=== PATIENT | male | born 1985 | race Caucasian/White ===

== ENCOUNTER 2017-11-12 17:13 | Emergency (ER) | payer BC ==
[2017-11-12 17:22] VITALS: BP 119/75
[2017-11-12] MEDS ORDERED: BUFFERED LIDOCAINE 10 ML SYRINGE SUBQ STA (17:31)
--- NOTE | 2017-11-12 17:44 | ED Physician Documentation ---
PD HPI UPPER EXT INJURY - Stated complaint Stated Complaint: FINGER LAC - Chief complaint Chief Complaint: Ext Problem - History obtained from History obtained from: Patient - History of Present Illness Location: Other (Left-handed gentleman who is up-to-date on tetanus was working at home with a Rom[employer] today and injured the dorsal surface of the distal Second right finger.) Review of Systems Constitutional: denies: Fever, Chills Skin: reports: Reviewed and negative Musculoskeletal: reports: Reviewed and negative PD PAST MEDICAL HISTORY - Past Medical History Past Medical History: Yes Other Past Medical History: Head aches - Past Surgical History Past Surgical History: Yes - Present Medications Home Medications: Ambulatory Orders Medication Instructions Recorded Confirmed HYDROcod/ACETAM 5/325 [Hurst 5/325] 1 - 2 ea PO Q6H PRN #15 tablet 11/12/17 - Allergies Allergies/Adverse Reactions: Allergies Allergy/AdvReac Type Severity Reaction Status Date / Time No Known Drug Allergies Allergy Verified 11/12/17 17:22 - Social History Does the pt smoke?: Yes Smoking Status: Former smoker Does the pt drink ETOH?: Yes Does the pt have substance abuse?: No - Immunizations Immunizations are current?: Yes PD ED PE NORMAL - Vitals Vital signs reviewed: Yes - General General: Alert and oriented X 3, No acute distress - Extremities Extremities: Other (There is tissue loss extending from the DIP on the dorsal surface of the right second finger distally, much of the central part of the nail is gone and the nailbed is abraded.) - Neuro Neuro: Alert and oriented X 3, Normal speech Results - Vitals Vitals: Vital Signs - 24 hr 11/12/17 17:21 Temperature 36.7 C Heart Rate 63 Respiratory 16 Rate Blood Pressure 119/75 O2 Saturation 98 Oxygen O2 Source Room air Procedures - General procedure General procedure: After a digital block with buffered lidocaine the remaining nail was sharply debrided and removed, there were some very small arterial bleeders which were cauterized and then it was dressed. Departure - Departure Disposition: 01 Home, Self Care Clinical Impression: Fingernail avulsion Qualifiers: Encounter type: initial encounter Qualified Code(s): S61.309A - Unspecified open wound of unspecified finger with damage to nail, initial encounter Condition: Good Record reviewed to determine appropriate education?: Yes Instructions: ED Wound Care Prescriptions: HYDROcod/ACETAM 5/325 [Hurst 5/325] 1 - 2 ea PO Q6H PRN #15 tablet PRN Reason: Pain Comments: Soap and water and bulky dressing as discussed. Return for signs of infection including redness, swelling, drainage, fever. Follow-up with your doctor early next week for a wound check. Forms: Activity restrictions
[2017-11-12] MEDS ORDERED: HYDROcod/ACETAM 5/325 MG TABLET PO STA (18:29)
== END 2017-11-12 18:51 | disposition home or self-care (01) ==
LOC: ED 17:13
DX: S61.310A Laceration without foreign body of right index finger with damage to nail, initial encounter (principal); W31.2XXA Contact with powered woodworking and forming machines, initial encounter; Y92.009 Unspecified place in unspecified non-institutional (private) residence as the place of occurrence of the external cause; Z87.891 Personal history of nicotine dependence
CPT/HCPCS: 11730; 99283; A9270

== ENCOUNTER 2018-01-24 13:31 | Outpatient (CLI) | payer BC ==
[~2018-01-24 13:31] MED LIST: GADOBUTROL 10 MMOL/10 ML SYRINGE ONE
[2018-01-24] MEDS ORDERED: GADOBUTROL 10 MMOL/10 ML SYRINGE IVP ONE (15:19)
--- NOTE | 2018-01-25 20:16 | MRI Report ---
EXAM: MRI BRAIN WITHOUT AND WITH CONTRAST EXAM DATE: 01/24/2018 02:00 PM. CLINICAL HISTORY: 32-year-old with history of severe migraines COMPARISON: None. TECHNIQUE: Multiplanar, multisequence T1-weighted and fluid-sensitive MR sequences of the brain were performed. Sequences optimized for routine evaluation. Other: None. IV Contrast: 9 cc GADAVIST. FINDINGS: Brain Volume: Normal for age. Parenchyma: No acute hemorrhage, mass, or infarct. No white matter lesions identified. No abnormal en hancement. Incidentally seen is a small left frontal developmental venous anomaly. Incidentally seen is a small right frontal developmental venous anomaly. Ventricles/Cisterns: No hydrocephalus. No abnormal extra-axial fluid collection or hemorrhage. Orbits: Symmetric and unremarkable. Sella Turcica: The pituitary gland, cavernous sinuses, suprasellar cistern and optic chiasm are unrem arkable. IAC: Symmetric and unremarkable. Vasculature: Normal signal flow void is seen in the major arterial structures at the skull base. The dural sinuses are patent and enhance normally. Sinuses: Mild mucosal thickening in the ethmoid air cells. Mastoid air cells and middle ear cavities are clear. Bones: No focal pathologic appearing marrow signal changes. Other: None. IMPRESSION: 1. No acute infarct, intracranial hemorrhage, mass, hydrocephalus, midline shift, or abnormal postcon trast enhancement. 2. No definite white matter of lesions seen. [facility] Referring Provider Line: [phone] SITE ID: [id number]
== END 2018-01-24 13:32 | disposition home or self-care (01) ==
LOC: DI 13:31
PROVIDERS: ATTEND Physician Assistant Medical
DX: G43.909 Migraine, unspecified, not intractable, without status migrainosus (principal)
CPT/HCPCS: 70553; A9585

== ENCOUNTER 2018-03-03 16:02 | Outpatient (CLI) | END 2018-03-03 16:03 | disposition home or self-care (01) ==

== ENCOUNTER 2019-12-06 16:20 | Outpatient (CLI) | payer BC ==
[2019-12-06] MEDS ORDERED: IOVERSOL 320 100 ML VIAL IVP ONE ×2 (16:24→17:06)
--- NOTE | 2019-12-07 03:24 | CT Report ---
Reason: RT FLANK PAIN Procedure Date: 12/06/2019 Accession Number: [id number] / [id number] Procedure: CT - IVP CPT Code: Final Report FULL RESULT: EXAM: CT ABDOMEN AND PELVIS WITHOUT AND WITH CONTRAST (CT IVP) EXAM DATE: 12/06/2019 05:13 PM. CLINICAL HISTORY: Right flank pain COMPARISONS: None. TECHNIQUE: Routine helical imaging was performed through the kidneys, ureters and bladder in the precontrast, postcontrast and delayed phase. IV Contrast: OPTIRAY 320. Reconstructions: Coronal and sagittal. In accordance with CT protocol optimization, one or more of the following dose reduction techniques were utilized for this exam: automated exposure control, adjustment of mA and/or KV based on patient size, or use of iterative reconstructive technique. FINDINGS: Minimal dependent atelectasis is seen in the lung bases. The visible heart is normal in size. No pericardial effusion. Calcifications are seen in the liver and spleen, likely representing calcified granulomas. No intrahepatic mass is seen. The gallbladder is normal. There is no biliary dilatation. The pancreas and adrenal glands are within normal limits. The kidneys enhance symmetrically. There is no evidence of renal mass or calculus. No ureteral calculus is seen. There is no hydronephrosis. Contrast is excreted into the renal collecting systems without evidence of filling defect. The bladder is normal and without evidence of bladder calculus or bladder wall thickening. Diverticula are seen in the colon without evidence of diverticulitis. The appendix is normal. The intestines are normal in caliber and position. There is no evidence of bowel obstruction or ascites. No free intraperitoneal air is seen. There is no lymphadenopathy. The abdominal aorta is normal in course and caliber. The prostate gland is normal in size with a single punctate internal calcification. The osseous structures are intact and well aligned. No suspicious lytic or blastic lesions are seen. IMPRESSION: 1. No urinary tract masses, stones or obstruction. 2. Diverticulosis. [facility]
== END 2019-12-06 16:21 | disposition home or self-care (01) ==
LOC: DI 16:20
PROVIDERS: ATTEND Family Medicine
DX: K57.30 Diverticulosis of large intestine without perforation or abscess without bleeding (principal); R10.9 Unspecified abdominal pain
CPT/HCPCS: 74178; Q9967

== ENCOUNTER 2023-02-26 10:24 | Outpatient (CLI) | payer BC ==
[2023-02-26 18:41] LABS: BASOPHILS % (AUTO) 0.5 %; EOSINOPHILS # (AUTO) 0.1 10^3/uL (0.0-0.7); EOSINOPHILS % (AUTO) 1.5 %; HCT - HEMATOCRIT 44.3 % (42.0-52.0); HGB - HEMOGLOBIN 14.6 g/dL (14.0-18.0); LYMPHOCYTES # (AUTO) 2.6 10^3/uL (1.5-3.5); LYMPHOCYTES % (AUTO) 28.9 %; MEAN CORPUSCULAR HEMOGLOBIN 31.3 pg (27.0-31.0); MEAN CORPUSCULAR VOLUME 95.1 fL (80.0-94.0); MEAN PLATELET VOLUME 10.1 fL (7.4-11.4); MONOCYTES # (AUTO) 0.7 10^3/uL (0.0-1.0); MONOCYTES % (AUTO) 8.4 %; NEUTROPHILS # (AUTO) 5.4 10^3/uL (1.5-6.6); NEUTROPHILS % (AUTO) 60.4 %; PLT - PLATELET COUNT 224 10^3/uL (130-450); RED BLOOD COUNT 4.66 10^6/uL (4.70-6.10); RED CELL DISTRIBUTION WIDTH 13.6 % (12.0-15.0); WHITE BLOOD COUNT 8.9 x10^3/uL (4.8-10.8)
[2023-02-26 19:22] LABS: ALBUMIN 4.5 g/dL (3.2-5.5); ALBUMIN/GLOBULIN RATIO 1.5 (1.0-2.2); ALKALINE PHOSPHATASE 37 IU/L (42-121); ALT ALANINE AMINOTRANSFERASE 36 IU/L (10-60); AST ASPARTATE AMINOTRANSFERASE 26 IU/L (10-42); BILIRUBIN,TOTAL 0.8 mg/dL (0.2-1.0); BUN - BLOOD UREA NITROGEN 23 mg/dL (6-20); CALCIUM 9.4 mg/dL (8.5-10.3); CARBON DIOXIDE - CO2 28 mmol/L (21-32); CHLORIDE 104 mmol/L (101-111); CHOL/HDL RATIO 3.7 (<5.0); CHOLESTEROL 268 mg/dL; GFR - MDRD 83 (>89); GLUCOSE 103 mg/dL (70-100); HDL CHOLESTEROL 73 mg/dL; LDL CHOLESTEROL,CALCULATED 184 mg/dL; LDL/HDL RATIO 2.5 (<3.6); POTASSIUM 4.4 mmol/L (3.5-5.0); SODIUM 138 mmol/L (135-145); TOTAL PROTEIN 7.5 g/dL (6.7-8.2); TRIGLYCERIDES 54 mg/dL; VLDL CHOLESTEROL 11 mg/dL
[2023-02-26 19:33] LABS: THYROID STIMULATING HORMONE 0.92 uIU/mL (0.34-5.60)
== END 2023-02-26 10:25 | disposition home or self-care (01) ==
LOC: LAB.N 10:24
PROVIDERS: ATTEND Physician Assistant Medical
DX: Z00.00 Encounter for general adult medical examination without abnormal findings (principal); F41.9 Anxiety disorder, unspecified
CPT/HCPCS: 36415; 80053; 80061; 82306; 82607; 83721; 84443; 85025

== ENCOUNTER 2023-08-21 12:03 | Outpatient (CLI) | payer BC ==
--- NOTE | 2023-08-21 14:27 | XRAY Report ---
PROCEDURE: Tib/Fib RT INDICATIONS: RT LEG PAIN, RIGHT MEDIAL LEG DEFORMITY TECHNIQUE: 2 views of the tibia and fibula were acquired. COMPARISON: None. FINDINGS: Bones: No fractures or dislocations. There appears to be ossification of the soft tissue structure adjacent to the medial aspect of the tibia in the region of pain. No suspicious bony lesions. Soft tissues: No suspicious soft tissue calcifications or masses. IMPRESSION: There appears to be ossification of the soft tissues directly adjacent to the medial aspect of the ti anselmo in the region of pain. This may represent heterotopic ossification, which can be seen secondary t o prior trauma. Otherwise, no acute abnormalities are identified. Reviewed by: Julio Ontiveros MD on 08/21/2023 2:26 PM PST Approved by: Julio Ontiveros MD on 08/21/2023 2:26 PM PST Station ID: [id number]
== END 2023-08-21 12:04 | disposition home or self-care (01) ==
LOC: DI 12:03
PROVIDERS: ATTEND Physician Assistant Medical
DX: M79.604 Pain in right leg (principal)

== ENCOUNTER 2023-12-18 09:43 | Outpatient (CLI) | payer BC ==
[2023-12-18 12:19] LABS: BASOPHILS % (AUTO) 0.7 %; EOSINOPHILS # (AUTO) 0.3 10^3/uL (0.0-0.7); EOSINOPHILS % (AUTO) 4.5 %; HCT - HEMATOCRIT 46.4 % (42.0-52.0); HGB - HEMOGLOBIN 15.6 g/dL (14.0-18.0); LYMPHOCYTES % (AUTO) 33.6 %; MEAN CORPUSCULAR HEMOGLOBIN 31.9 pg (27.0-31.0); MEAN CORPUSCULAR HGB CONC 33.6 g/dL (32.0-36.0); MEAN CORPUSCULAR VOLUME 94.9 fL (80.0-94.0); MEAN PLATELET VOLUME 9.9 fL (7.4-11.4); MONOCYTES # (AUTO) 0.6 10^3/uL (0.0-1.0); NEUTROPHILS % (AUTO) 50.2 %; PLT - PLATELET COUNT 226 10^3/uL (130-450); RED BLOOD COUNT 4.89 10^6/uL (4.70-6.10); RED CELL DISTRIBUTION WIDTH 12.5 % (12.0-15.0)
[2023-12-18 12:26] LABS: ALBUMIN 4.7 g/dL (3.2-5.5); ALBUMIN/GLOBULIN RATIO 1.6 (1.0-2.2); BILIRUBIN,TOTAL 0.8 mg/dL (0.2-1.0); CALCIUM 9.7 mg/dL (8.5-10.3); POTASSIUM 4.4 mmol/L (3.5-4.5); TOTAL PROTEIN 7.7 g/dL (6.4-8.9)
[2023-12-18 12:41] LABS: THYROID STIMULATING HORMONE 1.29 uIU/mL (0.34-5.60)
[2023-12-18 12:47] LABS: FERRITIN 151.3 ng/mL (23.9-336.2)
== END 2023-12-18 09:44 | disposition home or self-care (01) ==
LOC: LAB.N 09:43
PROVIDERS: ATTEND Physician Assistant Medical
DX: R53.83 Other fatigue (principal); K21.9 Gastro-esophageal reflux disease without esophagitis
CPT/HCPCS: 36415; 80053; 82306; 82607; 82728; 82746; 84403; 84443; 85025

== ENCOUNTER 2024-01-27 15:00 | Outpatient (CLI) | payer BC ==
--- NOTE | 2024-01-27 15:49 | Sleep Patient Instructions ---
Sleep Center Visit Summary - Patient Visit Information Reason for Visit: Initial consult for evaluation of sleep disordered breathing and other sleep issues. - Patient Instructions Instructions Attached: Sleep Study, Sleep Study Home Monitor Additional Instructions: You will be completing a sleep study, either an in-lab polysomnography (PSG) or home sleep study (HST). You will follow-up in the sleep care office after the sleep study is completed to hear the results and talk about therapy, if needed. You will be called by our office staff to schedule this appointment, but you may contact us with any questions. - Clinic Information Contact: [facility] [address] [place] [id number] [email or web address] T: [phone]
--- NOTE | 2024-01-27 15:52 | SLEEP CARE CONSULTATION ---
Information from patient questionnaire entered by Gal Mejia. I have reviewed and concur with the information entered by Gal Mejia. This document represents the service I personally performed and the decisions made by me, Shira Anton ARNP. History of Present Illness Service Date and Time: 01/27/2024 1500 Reason for Visit: New patient Chief Complaint: reports: Insomnia, Unrefreshed sleep, Snoring, Excessive daytime sleepiness, Observed pauses in breathing, Fatigue, Frequent awakenings at night, Other (Headaches) Date of Onset: 20 years Usual bedtime: 10 - 10:30 PM Time it takes to fall asleep: Varies from 5 min - 2 hours Snores at night: Yes Observed to quit breathing while asleep: Yes Sleeps alone due to snoring: No Number of times waking at night: 4-5 Reasons for waking at night: reports: Snoring, Pain, Bathroom. denies: Choking, Gasping for air Toss, Turn, or Twitch while sleeping: Yes Recalls having dreams: No Usually gets out of bed at: 5:30 - 6:30 Feels refreshed in the morning: No Morning headache: Yes (every day; Usually resolves 30 - 45 min after I take meds) Sleepy or fatigued during the day: Yes Ever fallen asleep while driving: Yes (drowsy driving, no accidents) Takes day naps: Yes (3-4 naps a day) Dreams during day naps: No Prior sleep studies: No Additional HPI information: I had the pleasure of seeing ENRIQUE HERR today regarding the possibility of him having a sleep disorder. His current complaints are excessive daytime sleepiness, fatigue, frequent night awakenings, insomnia, observed pauses in breathing, snoring, unrefreshed sleep and headaches. He says that he saw an ENT because of waking up with headaches. He cannot take Excedrin and fioricet anymore because he was taking it too much. He is currently taking amitriptyline 25 mg daily which is helping him go to sleep but not necessarily take care of the headaches. He is able to go to sleep about 5-20 minutes and only wakes up 4- 5 times a night, which is an improvement, used to be double. He says he takes a nap about 4 times a day, 3 20-30 minute breaks and one 2.5-3 hours in late afternoon. He says he is tired all the time. He does not wake up feeling rested and does not remember dreaming. - Parasomnia Symptoms Ever been unable to move upon waking from sleep: Yes (not very common) Walks in sleep: No Talks in sleep: Yes Ever acted out dreams in sleep: Yes ( tells him he was moving hands in sleep) Ever felt weak in the knees when startled or emotional: Yes Bothered by creepy, crawly, restless sensations in legs: Yes (just feels like he has to move legs) Problems with memory or concentration: Yes (both) Subjective Initial Wasta Sleepiness Scale score: 18 (in 2023) Past Medical History Past Medical History: reports: Arthritis, Anxiety, Depression, GERD, Other (Migraines, plantar fasciitis) Social History 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 Patient is and lives in [place]. Have you smoked in the past 12 months: No Cigarettes per day (20/pack): 20 Years of smokin Quit date: 2009 Smoking Pack Years: 8.0 Alcohol use: Yes Alcohol amount and frequency: 3 drinks on Friday, Friday Caffeine use: Yes Caffeine amount and frequency: 1 cup each day Family History Family history of sleep disordered breathing: Yes Family Hx Sleep Apnea: Father: Snoring Allergies and Home Medications Known drug allergies: No Drug allergies reviewed: Yes Home medication list reviewed: Yes (as listed) Allergy and home medication list: Allergies No Known Drug Allergies Allergy (Verified 01/22/24 14:07) Home Medications Medication Instructions Recorded Confirmed Last Taken Type Calcium Carbonate [Tums (Calcium 1,000 mg PO DAILY 05/29/23 01/27/24 05/27/23 History Carbonate 500mg)] Fluoxetine HCl [Prozac] 60 mg PO DAILY 05/29/23 01/27/24 05/28/23 History Omeprazole 40 mg PO BID 05/29/23 01/27/24 05/28/23 History Pantoprazole [Protonix] 40 mg PO BID 14 Days #28 tablet 06/03/23 01/27/24 Unknown Rx Amitriptyline 25 mg ORAL DAILY 01/27/24 01/27/24 Unknown History Emgality Syringe See Rx Instructions .ROUTE .COMPLEX 01/27/24 01/27/24 Unknown History Famotidine 20 mg ORAL DAILY 01/27/24 01/27/24 Unknown History Fioricet 50-300-40 mg Capsule See Rx Instructions .ROUTE .COMPLEX 01/27/24 01/27/24 Unknown History Propranolol 10 mg ORAL DAILY 01/27/24 01/27/24 Unknown History Zomig 5 mg ORAL PRN PRN 01/27/24 01/27/24 Unknown History Review of Systems Weight loss over past 5 years: 20 Cardiovascular: denies: high blood pressure Respiratory: denies: shortness of breath Gastrointestinal: reports: heartburn, difficulty swallowing, nausea, vomitting, diarrhea, abdominal pain Urinary: reports: incontinence, frequency, impotence Neurological: reports: headaches, disorientation, gait or balance problems Psychiatric: reports: anxiety, depression Ear/Nose/Throat: reports: nasal congestion, sinus problems, dry mouth/throat, hoarseness. denies: tonsillectomy Endocrine: reports: sluggishness (/tired), too hot or cold, excessive thirst, increased urination Musculoskeletal: reports: joint pain (/stiffness), neck pain, back pain, joint swelling, muscle pain or cramping Immunologic: reports: sneezing (/runny nose) Physical Exam Vital signs obtained and entered by: Shira Narvaez NP Blood Pressure: 136/103 Cuff size: long (right arm) Heart Rate: 88 O2 Saturation: 98 Height: 6 ft 0.75 in Weight: 228 lb 4.8 oz Body Mass Index: 30.3 BMI Classification: Obese Neck circumference: 17 (inches) Mouth and throat: narrow oropharynx Soft palate: long Hard palate: normal Uvula: long Uvula visualization: 25% Mallampati Class III Tongue: enlarged in size with teeth iglesias on lateral edges Tonsils: small Neck: normal w/o lymphadenopathy or thyromegaly Heart: regular rate and rhythm Lungs: clear bilaterally Impression and Plan 1. Suspected Obstructive Sleep Apnea-Hypopnea Syndrome, as suggested by a history of loud and irregular snoring, observed cessation of breath while asleep, morning headache, frequent awakening during the night, unrefreshed sleep, cognitive impairment, and excessive daytime sleepiness. Narrow oropharynx and obesity are common predisposing factors for obstructive sleep apnea-hypopnea syndrome. I recommend proceeding to polysomnography to confirm the diagnosis and to assess severity. If the patient has significant sleep disordered breathing, a manual CPAP titration study will also be performed to f ind the optimal treatment pressure. I informed the patient of what the sleep studies involve and after some discussion, obtained agreement to proceed. The pathophysiology of obstructive sleep apnea-hypopnea syndrome was discussed with the patient and health risks of cardiovascular and cerebrovascular disease if not treated. Risks of drowsy driving discussed in detail and patient advised to avoid long distance driving and to gum puller at the first sign of drowsiness. Patient agreed to plan. * Schedule polysomnography * Avoid long distance driving or driving when feeling sleepy. * Avoid alcohol, sedative and muscle relaxant around bedtime. * Attempt to lose weight. * Review instructions provided by trained office staff on how to prepare for the sleep study. * Return for follow-up after sleep study completed. Counseling Topics: Weight loss health impact Plan: PSG and follow up Visit Type: In Office Time Spent with Patient (minutes): 35 Provider Statement: I spent 100% of the Face to Face Visit with the patient with greater than 50% spent counseling the patient and coordination of care.
[2024-01-27 16:02] VITALS: BP 136/103; O2SAT 98
== END 2024-01-27 15:01 | disposition home or self-care (01) ==
LOC: SC 15:00
PROVIDERS: ATTEND Nurse Practitioner Family
DX: R06.83 Snoring (principal); R06.81 Apnea, not elsewhere classified; R51.9 Headache, unspecified; G47.8 Other sleep disorders; R41.89 Other symptoms and signs involving cognitive functions and awareness; G47.10 Hypersomnia, unspecified; E66.9 Obesity, unspecified; Z68.30 Body mass index [BMI] 30.0-30.9, adult
CPT/HCPCS: 99203; 99212

== ENCOUNTER 2024-02-26 09:19 | Outpatient (CLI) | payer BC | END 2024-02-26 09:20 | disposition home or self-care (01) | LOC: SC 09:19 | PROVIDERS: ATTEND Nurse Practitioner Family | DX: G47.10 Hypersomnia, unspecified (principal); R53.83 Other fatigue; G47.8 Other sleep disorders; R51.9 Headache, unspecified; R06.83 Snoring; R06.81 Apnea, not elsewhere classified; F32.A Depression, unspecified | CPT/HCPCS: 95806 ==

== ENCOUNTER 2024-04-01 13:32 | Outpatient (CLI) | payer BC ==
--- NOTE | 2024-04-01 14:04 | Sleep Patient Instructions ---
Sleep Center Visit Summary - Patient Visit Information Reason for Visit: Sleep study follow-up - Patient Instructions Additional Instructions: Your sleep study today was negative for significant sleep disordered breathing. However, due to ongoing hypersomnia we are going to try to get another sleep study in our sleep lab. You were found to have episodes of snoring. There are different ways to control snoring including weight loss, oral devices made by a dentist or surgical options through ENT specialist. You should not use oral devices that do not fit properly because they can affect your bite. You should also check insurance coverage of oral devices for snoring because they may not be cover well. You may obtain a referral to an ENT specialist through your primary provider. Follow-up after sleep study or as needed. - Clinic Information Contact: [facility] [address] [place] [address] [email or web address] T: [phone]
[2024-04-01 14:10] VITALS: BP 119/88; O2SAT 98
--- NOTE | 2024-04-01 14:10 | SLEEP CARE CONSULTATION ---
Information from patient questionnaire entered by Kari Lira. I have reviewed and concur with the information entered by Kari Lira. This document represents the service I personally performed and the decisions made by , Shira Anton ARNP. History of Present Illness Service Date and Time: 04/01/2024 1332 Initial El[place] Sleepiness Scale score: 18 (in 2023) Current [place] Sleepiness Scale score: 22 (04/01/24) Additional HPI information: ENRIQUE HERR returns for follow up and results of the recently performed home sleep study on 02/26/2024. The patient was informed of the following findings: No significant sleep dis ordered breathing with an average AHI of 3.3 and conchis oxygen saturation of 90%. I explained the pathophysiology behind obstructive sleep apnea. Patient does not have sleep apnea and was advised how weight gain could increase the risk of developing sleep apnea in the future. I strongly encouraged the patient to lose weight. Patient has light snoring. Snoring can be reduced by weight loss. Weight loss is best achieved with diet consult. Patient instructed to contact PCP for referral. Snoring can also be treated with an oral appliance from a dentist. Advised to check insurance coverage. In addition, an ENT evaluation can be do to see if other treatment is indicated. Sleep Study - Results Type of Sleep Study: Polysomnography (COMPLETED 02/26/24) Prior sleep studies: No Polysomnography/Home Sleep Study results: Physician Impression: The quality of the study is good. The length of the study is adequate (> 240 minutes). Please also see the tabulated and graphic data. 1. No significant sleep disordered breathing, with an AHI of 3.3/hr and conchis SaO2 of 90%. During the study, the patient had 12 apneas (12 obstructive, 0 central, 0 mixed) and 13 hypopneas. The longest episode lasted 106.0 seconds. The respiratory events occurred more frequently during supine sleep (supine AHI was 3.8 and non-supine, 2.01). Allergies and Home Medications Known drug allergies: No Drug allergies reviewed: Yes Home medication list reviewed: Yes Allergy and home medication list: Allergies No Known Drug Allergies Allergy (Verified 04/01/24 13:44) Review of Systems Review of systems same as previous: Yes (NO CHANGE) Physical Exam Vital signs obtained and entered by: KARI Jeter MA Blood Pressure: 119/88 (LEFT ARM) Cuff size: regular Heart Rate: 98 O2 Saturation: 98 Height: 6 ft 0.75 in Weight: 244 lb 6.4 oz Body Mass Index: 32.4 BMI Classification: Obese Impression and Plan 1. Hypersomnia, unspecified. His Elgin score is 22/24. He is getting adequate sleep and taking naps but still is very sleepy during the day. He suffers from headaches that start about 0230 in the morning and has history of migraines. Suspected Obstructive Sleep Apnea-Hypopnea Syndrome or other sleep disordered breathing, as suggested by a history of loud and irregular snoring, observed cessation of breath while asleep, morning headache, unrefreshed sleep, cognitive impairment, and excessive daytime sleepiness. I recommend proceeding to an in-lab polysomnography to confirm the diagnosis and to assess severity. I obtained agreement to proceed. The pathophysiology of obstructive sleep apnea- hypopnea syndrome was discussed with the patient and health risks of cardiova scular and cerebrovascular disease if not treated. Risks of drowsy driving discussed in detail and patient advised to avoid long distance driving and to breast puller at the first sign of drowsiness. Patient agreed to plan. 2. Snoring but no significant sleep disordered breathing. Patient advised that often weight loss will reduce snoring as well as apnea risk. An oral appliance can also be used for snoring. This would require a dental consultation. Patient cautioned not to use other online appliances as can cause bite issues. Patient is advised to check if insurance will cover. An ENT consult can also be helpful to determine if any other treatment is an option. 3. Obesity, unspecified. Currently patients BMI is 32.4. Obesity increases the risk of apnea, CPAP pressure requirements and overall health risks especially cardiovascular and diabetes. Thus patient is advised to lose weight. * Schedule polysomnography * Avoid long distance driving or driving when feeling sleepy. * Avoid alcohol, sedative and muscle relaxant around bedtime. * Attempt to lose weight. * Review instructions provided by trained office staff on how to prepare for the sleep study. * Return for follow-up after sleep study completed. Counseling Topics: Weight loss health impact Plan: PSG in lab and follow up Visit Type: In Office Time Spent with Patient (minutes): 24 Provider Statement: I spent 100% of the Face to Face Visit with the patient with greater than 50% spent counseling the patient and coordination of care.
== END 2024-04-01 13:33 | disposition home or self-care (01) ==
LOC: SC 13:32
PROVIDERS: ATTEND Nurse Practitioner Family
DX: G47.10 Hypersomnia, unspecified (principal); R51.9 Headache, unspecified; R06.83 Snoring; E66.9 Obesity, unspecified; Z68.32 Body mass index [BMI] 32.0-32.9, adult
CPT/HCPCS: 99212; 99213

== ENCOUNTER 2024-04-15 19:33 | Outpatient (CLI) | payer BC | END 2024-04-15 19:34 | disposition home or self-care (01) | LOC: SC 19:33 | PROVIDERS: ATTEND Nurse Practitioner Family | DX: G47.10 Hypersomnia, unspecified (principal); R53.83 Other fatigue; R51.9 Headache, unspecified; R06.83 Snoring; R06.81 Apnea, not elsewhere classified; F32.A Depression, unspecified | CPT/HCPCS: 95810 ==

== ENCOUNTER 2024-05-04 14:27 | Outpatient (CLI) | payer BC ==
--- NOTE | 2024-05-04 14:56 | Sleep Patient Instructions ---
Sleep Center Visit Summary - Patient Visit Information Reason for Visit: Sleep study follow-up - Patient Instructions Instructions Attached: Snoring Tips Prevent Additional Instructions: Your sleep study today was negative for significant sleep disordered breathing. You were found to have episodes of snoring. There are different ways to control snoring including weight loss, oral devices made by a dentist or surgical options through ENT specialist. You should not use oral devices that do not fit properly because they can affect your bite. You should also check insurance coverage of oral devices for snoring because they may not be cover well. You may obtain a referral to an ENT specialist through your primary provider. Follow-up as needed. - Clinic Information Contact: [facility] [address] [place] [address] [email or web address] T: [phone]
--- NOTE | 2024-05-04 14:59 | SLEEP CARE CONSULTATION ---
Information from patient questionnaire entered by Gal Mejia. I have reviewed and concur with the information entered by Gal Mejia. This document represents the service I personally performed and the decisions made by , Shira Anton ARNP. History of Present Illness Service Date and Time: 05/04/20241426 Initial Elton Sleepiness Scale score: 18 (in 2023) Current Elton Sleepiness Scale score: 20 (in 2023) Additional HPI information: ENRIQUE HERR returns for follow up and results of the recently performed polysomnography done on 04/15/24. The patient was informed of the following findings: No significant sleep dis ordered breathing with an average AHI of 4.6 and conchis oxygen saturation of 87%. I explained the pathophysiology behind obstructive sleep apnea. Patient does not have sleep apnea and was advised how weight gain could increase the risk of developing sleep apnea in the future. I strongly encouraged the patient to lose weight. Patient has mild snoring. Snoring can be reduced by weight loss. Weight loss is best achieved with diet consult. Patient instructed to contact PCP for referral. Snoring can also be treated with an oral appliance from a dentist. Advised to check insurance coverage. In addition, an ENT evaluation can be do to see if other treatment is indicated. Patient does not drink alcohol. Patient was cautioned about risks of drowsy driving until sleepiness symptoms resolve. Sleep Study - Results Type of Sleep Study: Polysomnography (COMPLETED 02/26/24) Prior sleep studies: No Polysomnography/Home Sleep Study results: IMPRESSION: The quality of the study is good. The patient had minimally reduced sleep efficiency. The sleep architecture was normal. Respiratory monitoring showed no significant sleep disordered breathing (AHI = 4.6) or hypoxia (conchis oxygen saturation of 87%). The patient slept mostly supine (supine AHI = 4.8; non-supine = 2.14). Snore was light to loud in intensity. There was no significant periodic leg movement of sleep. Cardiac rhythm was normal sinus rhythm without significant arrhythmia. No abnormal behavior (parasomnia) observed during the night. Allergies and Home Medications Known drug allergies: No Drug allergies reviewed: Yes Home medication list reviewed: Yes (no changes) Allergy and home medication list: Allergies No Known Drug Allergies Allergy (Verified 04/01/24 13:44) Review of Systems Review of systems same as previous: Yes (no changes) Physical Exam Vital signs obtained and entered by: Shira Narvaez NP Blood Pressure: 139/96 Cuff size: long (right arm) Heart Rate: 76 O2 Saturation: 98 Height: 6 ft 0.75 in Weight: 248 lb Body Mass Index: 32.9 BMI Classification: Obese Impression and Plan 1. Snoring but no significant sleep disordered breathing. Patient advised that often weight loss will reduce snoring as well as apnea risk. An oral appliance can also be used for snoring. This would require a dental consultation. Patient cautioned not to use other online appliances as can cause bite issues. Patient is advised to check if insurance will cover. An ENT consult can also be helpful to determine if any other treatment is an option. 2. Obesity, unspecified. Currently patients BMI is 32.9. Obesity increases the risk of apnea, CPAP pressure requirements and overall health risks especially cardiovascular and diabetes. Thus patient is advised to lose weight. * Attempt to lose weight * Avoid alcohol consumption near bedtime * The patient is cautioned about driving until sleepiness is completely resolved. * Return as needed for follow up. Counseling Topics: Weight loss health impact Follow up with Sleep Care in: as needed Visit Type: In Office Time Spent with Patient (minutes): 20 Provider Statement: I spent 100% of the Face to Face Visit with the patient with greater than 50% spent counseling the patient and coordination of care.
[2024-05-04 15:06] VITALS: BP 139/96; O2SAT 98
== END 2024-05-04 14:28 | disposition home or self-care (01) ==
LOC: SC 14:27
PROVIDERS: ATTEND Nurse Practitioner Family
DX: R06.83 Snoring (principal); E66.9 Obesity, unspecified; Z68.32 Body mass index [BMI] 32.0-32.9, adult
CPT/HCPCS: 99212; 99213